=== PATIENT | male | born 1970 | race Caucasian/White ===

== ENCOUNTER 2017-11-10 00:24 | Emergency (ER) | payer BC, OTHER ==
[2017-11-10 01:04] LABS: Basophils % (A) 1 %; Eosinophils # (A) 0.1 k/uL (0-0.7); Eosinophils % (A) 2 %; HCT 44.3 % (39.0-53.0); HGB 15.2 gm/dL (13.0-17.5); Lymphocytes # (A) 1.5 k/uL (1.0-4.8); Lymphocytes % (A) 24 %; MCH 28.4 pg (25.0-35.0); MCHC 34.4 g/dL (31.0-37.0); MCV 82.6 fL (80.0-100.0); Mean Platelet Volume 8.2; Monocytes # (A) 0.6 k/uL (0-1.0); Monocytes % (A) 9 %; Neutrophils # (A) 3.9 k/uL (1.3-7.7); Neutrophils % (A) 61 %; Platelet Count 148 k/uL (150-450); RBC 5.36 m/uL (4.30-5.90); RDW 13.5 % (11.5-15.5); WBC 6.3 k/uL (3.8-10.6)
[2017-11-10 01:23] LABS: Partial Thromboplastin Time 21.7 sec (22.0-30.0)
--- NOTE | 2017-11-10 01:23 | XR ---
EXAMINATION TYPE: XR chest 2V DATE OF EXAM: 11/10/2017 COMPARISON: NONE HISTORY: Chest pain TECHNIQUE: Frontal and lateral views of the chest are obtained. FINDINGS: Heart and mediastinum are normal. Lungs are clear. Diaphragm is normal. There are chest le ads. Bony thorax appears intact. IMPRESSION: Normal chest.
[2017-11-10 01:25] LABS: ALT 85 U/L (21-72); AST 40 U/L (17-59); Albumin 4.1 g/dL (3.5-5.0); Alkaline Phosphatase 69 U/L (38-126); Anion Gap 10 mmol/L; Blood Urea Nitrogen 20 mg/dL (9-20); Calcium 8.7 mg/dL (8.4-10.2); Carbon Dioxide 26 mmol/L (22-30); Chloride 101 mmol/L (98-107); Glucose 173 mg/dL (74-99); Magnesium 1.8 mg/dL (1.6-2.3); Potassium 3.9 mmol/L (3.5-5.1); Sodium 137 mmol/L (137-145); Total Bilirubin 0.5 mg/dL (0.2-1.3); Total Protein 6.5 g/dL (6.3-8.2)
[2017-11-10 01:34] LABS: Creatine Kinase 137 U/L (55-170)
[2017-11-10 01:46] LABS: Creatine Kinase MB 0.8 ng/mL (0.0-2.4); Troponin I <0.012 ng/mL (0.000-0.034)
--- NOTE | 2017-11-10 02:03 | ED ---
General Adult HPI - General Chief complaint: Chest Pain Stated complaint: chest pain Time Seen by Provider: 11/10/17 00:36 Source: patient, RN notes reviewed, old records reviewed Mode of arrival: wheelchair Limitations: no limitations - History of Present Illness Initial comments: 47-year-old male presents for evaluation of chest pain. Pain is been ongoing for the past several days. He's had this pain both at rest with exertion. Patient does not report any pain at the time of my evaluation. Patient states he did have some diaphoresis and nausea. No significant vomiting. Patient has no known history of coronary artery disease. No family history of coronary artery disease. He is a current smoker. No history of hypertension or diabetes. Pain is dull left-sided with some radiation to the left arm. - Related Data Allergies Allergy/AdvReac Type Severity Reaction Status Date / Time No Known Allergies Allergy Verified 11/10/17 00:27 Review of Systems ROS Statement: Those systems with pertinent positive or pertinent negative responses have been documented in the HPI. ROS Other: All systems not noted in ROS Statement are negative. Past Medical History Past Medical History: Sleep Apnea/CPAP/BIPAP History of Any Multi-Drug Resistant Organisms: None Reported Past Surgical History: No Surgical Hx Reported Past Psychological History: No Psychological Hx Reported Smoking Status: Current every day smoker Past Alcohol Use History: Occasional Past Drug Use History: None Reported General Exam Limitations: no limitations Course Vital Signs 11/10/17 11/10/17 11/10/17 00:27 00:38 01:41 Temperature 98.3 F Pulse Rate 98 92 Pulse Rate [ 96 Bilateral Sitting Radial] Respiratory 18 18 Rate Blood Pressure 137/85 122/64 O2 Sat by Pulse 100 100 Oximetry - Reevaluation(s) Reevaluation #1: 11/10/17 02:00 Patient does develop some chest pain while the emergency department and EKG is repeated, EKG is nonischemic. EKG Findings - EKG Comments: EKG Findings:: EKG: Normal sinus rhythm with sinus arrhythmia, rate of 86, ND interval 118, QRS duration 90, QTC 428, EKG repeated at 1:48, with pain. This is normal sinus rhythm, no acute ST segment changes or T-wave inversions. Ventricular rate of 90, ND interval 120, QRS duration 86, QTC 442 Medical Decision Making - Medical Decision Making 47-year-old male presenting for evaluation chest pain. EKG is negative for definitive signs of ischemia. History is mildly concerning. Chest x-ray negative for focal airspace disease or acute findings. CBC, CMP and troponin are negative. EKG is repeated when patient has some mild pain. This is unchanged from baseline. Patient is offered observation for serial cardiac enzymes and cardiology consultation, he declines. He prefers outpatient follow- up. Diagnosis: Chest pain. - Lab Data Result diagrams: 11/10/17 00:52 11/10/17 00:52 Lab Results 11/10/17 11/10/17 11/10/17 Range/Units 00:52 00:52 00:52 WBC 6.3 (3.8-10.6) k/uL RBC 5.36 (4.30-5.90) m/uL Hgb 15.2 (13.0-17.5) gm/dL Hct 44.3 (39.0-53.0) % MCV 82.6 (80.0-100.0) fL MCH 28.4 (25.0-35.0) pg MCHC 34.4 (31.0-37.0) g/dL RDW 13.5 (11.5-15.5) % Plt Count 148 L (150-450) k/uL Neutrophils % 61 % Lymphocytes % 24 % Monocytes % 9 % Eosinophils % 2 % Basophils % 1 % Neutrophils # 3.9 (1.3-7.7) k/uL Lymphocytes # 1.5 (1.0-4.8) k/uL Monocytes # 0.6 (0-1.0) k/uL Eosinophils # 0.1 (0-0.7) k/uL Basophils # 0.0 (0-0.2) k/uL PT (9.0-12.0) sec INR (<1.2) APTT (22.0-30.0) sec Sodium 137 (137-145) mmol/L Potassium 3.9 (3.5-5.1) mmol/L Chloride 101 (98-107) mmol/L Carbon Dioxide 26 (22-30) mmol/L Anion Gap 10 mmol/L BUN 20 (9-20) mg/dL Creatinine 1.10 (0.66-1.25) mg/dL Est GFR (CKD-EPI)AfAm >90 (>60 ml/min/1.73 sqM) Est GFR (CKD-EPI)NonAf 79 (>60 ml/min/1.73 sqM) Glucose 173 H (74-99) mg/dL Calcium 8.7 (8.4-10.2) mg/dL Magnesium 1.8 (1.6-2.3) mg/dL Total Bilirubin 0.5 (0.2-1.3) mg/dL AST 40 (17-59) U/L ALT 85 H (21-72) U/L Alkaline Phosphatase 69 (38-126) U/L Total Creatine Kinase 137 (55-170) U/L CK-MB (CK-2) 0.8 (0.0-2.4) ng/mL CK-MB (CK-2) Rel Index 0.6 Troponin I <0.012 (0.000-0.034) ng/mL NT-Pro-B Natriuret Pep pg/mL Total Protein 6.5 (6.3-8.2) g/dL Albumin 4.1 (3.5-5.0) g/dL 11/10/17 11/10/17 Range/Units 00:52 00:52 WBC (3.8-10.6) k/uL RBC (4.30-5.90) m/uL Hgb (13.0-17.5) gm/dL Hct (39.0-53.0) % MCV (80.0-100.0) fL MCH (25.0-35.0) pg MCHC (31.0-37.0) g/dL RDW (11.5-15.5) % Plt Count (150-450) k/uL Neutrophils % % Lymphocytes % % Monocytes % % Eosinophils % % Basophils % % Neutrophils # (1.3-7.7) k/uL Lymphocytes # (1.0-4.8) k/uL Monocytes # (0-1.0) k/uL Eosinophils # (0-0.7) k/uL Basophils # (0-0.2) k/uL PT 10.0 (9.0-12.0) sec INR 1.0 (<1.2) APTT 21.7 L (22.0-30.0) sec Sodium (137-145) mmol/L Potassium (3.5-5.1) mmol/L Chloride (98-107) mmol/L Carbon Dioxide (22-30) mmol/L Anion Gap mmol/L BUN (9-20) mg/dL Creatinine (0.66-1.25) mg/dL Est GFR (CKD-EPI)AfAm (>60 ml/min/1.73 sqM) Est GFR (CKD-EPI)NonAf (>60 ml/min/1.73 sqM) Glucose (74-99) mg/dL Calcium (8.4-10.2) mg/dL Magnesium (1.6-2.3) mg/dL Total Bilirubin (0.2-1.3) mg/dL AST (17-59) U/L ALT (21-72) U/L Alkaline Phosphatase (38-126) U/L Total Creatine Kinase (55-170) U/L CK-MB (CK-2) (0.0-2.4) ng/mL CK-MB (CK-2) Rel Index Troponin I (0.000-0.034) ng/mL NT-Pro-B Natriuret Pep <11 pg/mL Total Protein (6.3-8.2) g/dL Albumin (3.5-5.0) g/dL Disposition Clinical Impression: Chest pain Disposition: HOME SELF-CARE Condition: Good Instructions: Chest Pain (ED) Is patient prescribed a controlled substance at d/c from ED?: No Referrals: Milan Patel DO [Primary Care Provider] - 1-2 days Tc Marques MD [STAFF PHYSICIAN] - 1-2 days Time of Disposition: 02:02
[2017-11-10 02:28] VITALS: BP 106/53; PULSE 83; RESP 17; TEMP 97.9
== END 2017-11-10 02:29 | disposition home or self-care (01) ==
LOC: EC 00:24
DX: R07.9 Chest pain, unspecified (principal); R11.0 Nausea; R61 Generalized hyperhidrosis; F17.200 Nicotine dependence, unspecified, uncomplicated; G47.30 Sleep apnea, unspecified; Z99.89 Dependence on other enabling machines and devices
CPT/HCPCS: 36415; 71046; 80053; 82550; 82553; 83735; 83880; 84484; 85025; 85610; 85730; 93005; 99285

== ENCOUNTER → 2017-12-09 | Outpatient (CLI) | payer BC ==
--- NOTE | 2017-12-09 12:36 | EST ---
EXERCISE STRESS DATE OF SERVICE: 12/09/2017 AGE: 47 SEX: Male HT: 5'6" WT: 240 PROTOCOL: EXERCISE TREADMILL STRESS TEST STAGE: III DURATION OF EXERCISE: 8 minutes 15 seconds HEART RATE REST: 105 BLOOD PRESSURE REST: 160/87 MAXIMUM HEART RATE ACHIEVED: 149 MAXIMUM BLOOD PRESSURE: 202/80 85% MPHR: 145 100% MPHR: 171 METS: 9.5 INDICATIONS: Chest pain. CLINICAL INFORMATION: STRESS DATA: Pretesting physical examination showed a heart rate of 105. Pressure is 160/87 mmHg. Baseline EKG showed sinus rhythm. The patient exercised on the treadmill according to Hiram proton for a total of 8 minutes and 15 seconds and achieved 9.5 METs. Max heart rate was 149 which is about 87% of maximum predicted heart rate. Maximum blood pressure was 202/80 mmHg. Clinically the patient did not have any symptoms of chest pain or chest discomfort during the testing or in recovery. The EKG did not show any significant ST or T-wave abnormalities concerning for ischemia. CONCLUSION: 1. Excellent exercise tolerance. 2. No ischemic ST or T-wave abnormalities in response to exercise. MMODL / IJN: [id number] /
--- NOTE | 2017-12-09 12:50 | ECHOF ---
Referral Reason:R07.89 Atypical Chest Pain MEASUREMENTS -------- HEIGHT: 170.2 cm WEIGHT: 108.9 kg BP: RVIDd: 2.2 cm (< 3.3) IVSd: 1.3 cm (0.6 - 1.1) LVIDd: 4.4 cm (3.9 - 5.3) LVPWd: 1.3 cm (0.6 - 1.1) IVSs: 1.4 cm LVIDs: 3.5 cm LVPWs: 1.2 cm LA Diam: 2.6 cm (2.7 - 3.8) Ao Diam: 3.2 cm (2.0 - 3.7) AV Cusp: 1.1 cm (1.5 - 2.6) LA Diam: 2.9 cm (2.7 - 3.8) EPSS: 0.2 cm MV E Sesar: 0.53 m/s MV DecT: 98 ms MV A Sesar: 0.52 m/s MV E/A Ratio: 1.02 AV maxP.18 mmHg AV meanP.63 mmHg RAP: 5.00 mmHg RVSP: 14.31 mmHg MV EF SLOPE: 86.45 mm/s (70 - 150) MV EXCURSION: 1.03 cm (> 18.000) FINDINGS -------- Sinus rhythm. This was a technically adequate study. Morbid Obesity The left ventricular size is normal. There is mild concentric left ventricular hypertrophy. Overa ll left ventricular systolic function is low-normal with, an EF between 50 - 55 %. The right ventricle is normal in size. The left atrial size is normal. The right atrial size is normal. There is moderate aortic valve sclerosis. Peak/mean gradient across the Aortic Valve is 14.18mmHg / 8.63mmHg. Mild mitral annular calcification present. No mitral regurgitation. Mild tricuspid regurgitation present. There is no evidence of pulmonary hypertension. The right v entricular systolic pressure, as measured by Doppler, is 14.31mmHg. The aortic root size is normal. There is no pericardial effusion. CONCLUSIONS -------- 1. Sinus rhythm. 2. This was a technically adequate study. 3. Morbid Obesity 4. The left ventricular size is normal. 5. There is mild concentric left ventricular hypertrophy. 6. Overall left ventricular systolic function is low-normal with, an EF between 50 - 55 %. 7. The right ventricle is normal in size. 8. The left atrial size is normal. 9. The right atrial size is normal. 10. There is moderate aortic valve sclerosis. 11. Peak/mean gradient across the Aortic Valve is 14.18mmHg / 8.63mmHg. 12. Mild mitral annular calcification present. 13. No mitral regurgitation. 14. Mild tricuspid regurgitation present. 15. There is no evidence of pulmonary hypertension. 16. The right ventricular systolic pressure, as measured by Doppler, is 14.31mmHg. 17. The aortic root size is normal. 18. There is no pericardial effusion. MILITARY LOGISTICS SPECIALIST: Iwona Barrera RDCS
== END ==
LOC: RADNMMAIN 09:11
PROVIDERS: ATTEND Family Medicine
DX: I08.2 Rheumatic disorders of both aortic and tricuspid valves (principal)
CPT/HCPCS: 93017; 93306

== ENCOUNTER → 2019-02-22 | Outpatient (CLI) | payer BC ==
--- NOTE | 2019-02-22 11:34 | XR ---
EXAMINATION TYPE: XR chest 2V DATE OF EXAM: 02/22/2019 COMPARISON: Prior chest x-ray 11/10/2017 HISTORY: Nicotine dependence TECHNIQUE: Frontal and lateral views of the chest are obtained. FINDINGS: There is no focal air space opacity, pleural effusion, or pneumothorax seen. The cardiac silhouette size is within normal limits. The osseous structures are intact. IMPRESSION: No acute cardiopulmonary process.
--- NOTE | 2019-02-22 12:27 | XR ---
Left wrist HISTORY: Pain 4 views of the left wrist Bone mineralization, joint spaces and alignment are maintained. No fracture or dislocation. IMPRESSION: No significant abnormality
== END | disposition home or self-care (01) ==
LOC: RADXRMAIN 10:46
PROVIDERS: ATTEND Family Medicine
DX: M79.645 Pain in left finger(s) (principal); F17.210 Nicotine dependence, cigarettes, uncomplicated; Z00.00 Encounter for general adult medical examination without abnormal findings
CPT/HCPCS: 71046

== ENCOUNTER 2023-07-02 23:12 | Observation (INO) | payer BC ==
--- NOTE | 2023-07-02 23:32 | ED ---
Chest Pain HPI - General Source: patient, family Mode of arrival: ambulatory Limitations: no limitations <Aidan Szymanski - Last Filed: 07/02/23 23:31> - General Source: patient, family, RN notes reviewed, old records reviewed <Mehrdad Oliveros - Last Filed: 07/03/23 01:47> - General Chief Complaint: Chest Pain Stated Complaint: Tightness in chest, neck and arm pain Time Seen by Provider: 07/02/23 23:31 - History of Present Illness Initial Comments: 52-year-old male present with chief complaint of chest pain with radiation to the left shoulder and jaw on and off for 2 weeks (Aidan Szymanski) Patient is a 52-year-old male who presents emergency department for chest pain. Originally seen as a quick note. I evaluated patient when he was placed in room 6. Workup started in triage. Endorses 2 weeks of intermittent chest discomfort. Describes it as a pressure sensation located midsternal and left- sided chest with radiation to the left arm. Denies any known palliative or provocative factors. Is any cardiac history. Does have a history of diabetes. Also has a history of sleep apnea. Currently has no chest pain just the arm discomfort. States is not severe at all. Presents today for further evaluation over concern of continuing of the pain. Denies any diaphoresis or nausea or vomiting with this pain. Does not know if he has a family medical history of heart conditions. Was a prior tobacco user. Presents for further evaluation. (Mehrdad Oliveros) - Related Data Allergies Allergy/AdvReac Type Severity Reaction Status Date / Time No Known Allergies Allergy Verified 07/02/23 23:24 Review of Systems ROS Other: All systems not noted in ROS Statement are negative. <Aidan Szymanski - Last Filed: 07/02/23 23:31> ROS Other: All systems not noted in ROS Statement are negative. <Mehrdad Oliveros - Last Filed: 07/03/23 01:47> ROS Statement: Those systems with pertinent positive or pertinent negative responses have been documented in the HPI. Review of Systems: CONST: Denies fever EYES: Denies blurry vision ENT: Denies nasal congestion C/V: Denies Chest pain RESP: Denies shortness of breath GI: Denies abdominal pain : Denies dysuria SKIN: Denies rash. MSK: Denies joint pain. NEURO: Denies headache (Mehrdad Oliveros) EKG Findings - EKG Comments: EKG Findings:: 12-lead Electrocardiogram Interpretation Note. EKG was reviewed and interpreted by myself. 12-lead ECG performed at 2327 is interpreted by me as revealing normal sinus rhythm at a rate of 78 beats per minute. Bruce is normal. MA interval is 134 ms, QRS duration is 89 ms, QTc is 386 ms.. There were no ST or T wave abnormalities to suggest myocardial ischemia or injury. R wave progression across the precordium was satisfactory. By my interpretation this EKG is non-diagnostic for acute ischemia. - EKG Results: EKG: interpreted by ERMD <Mehrdad Oliveros - Last Filed: 07/03/23 01:47> Past Medical History Past Medical History: Diabetes Mellitus, Sleep Apnea/CPAP/BIPAP History of Any Multi-Drug Resistant Organisms: None Reported Past Surgical History: No Surgical Hx Reported Past Psychological History: No Psychological Hx Reported Smoking Status: Former smoker Past Alcohol Use History: Occasional Past Drug Use History: None Reported <Aidan Szymanski - Last Filed: 07/02/23 23:31> General Exam Limitations: no limitations <Aidan Szymanski - Last Filed: 07/02/23 23:31> <Mehrdad Oliveros - Last Filed: 07/03/23 01:47> - General Exam Comments Initial Comments: Visual Physical Exam Vital signs reviewed General: Well-appearing, nontoxic, no acute distress. Head: Normocephalic, atraumatic Eyes: PERRLA, EOMI ENT: Airway patent Chest: Nonlabored breathing Skin: No visual rash, normal skin tone Neuro: Alert and oriented 3 Musculoskeletal: No gross abnormalities (Aidan Szymanski) General: Appears in no acute distress. HEAD: Normal with no signs of head trauma. EYES: PERRLA, EOMI, conjunctiva normal, no discharge. ENT: Hearing grossly intact, normal oropharynx. RESPIRATORY: Clear breath sounds bilaterally. No wheezes, rales, or rhonchi. C/V: Regular rate and rhythm. S1 and S2 auscultated, no edema, peripheral pulses 2+ and intact throughout. Chest pain not reproducible on palpation. ABD: Abd is soft, nontender, nondistended EXT: Normal range of motion, no obvious deformity SKIN: No rashes or lesions observed on exposed skin. NEURO: Alert and oriented x 4. (Mehrdad Oliveros) Course Vital Signs 07/02/23 07/03/23 23:22 00:28 Temperature 98.5 F Pulse Rate 78 85 Respiratory 18 16 Rate Blood Pressure 138/84 127/73 O2 Sat by Pulse 100 98 Oximetry Chest Pain MDM <Aidan Szymanski - Last Filed: 07/02/23 23:31> <Mehrdad Oliveros - Last Filed: 07/03/23 01:47> - MDM I performed the quick note portion of this visit, electronically signed Aidan Szymanski PA-C (Aidan Szymanski) Was pt. sent in by a medical professional or institution (, PA, [facility], urgent care, hospital, or group home...) When possible be specific @ -No Did you speak to anyone other than the patient for history (EMS, parent, family, police, friend...)? What history was obtained from this source @ -No Did you review nursing and triage notes (agree or disagree)? Why? @ -I reviewed and agree with nursing and triage notes Were old charts reviewed (outside hosp., previous admission, EMS record, old EKG, old radiological studies, urgent care reports/EKG's, group home records)? Report findings @ -Old charts reviewed Differential Diagnosis (chest pain, altered mental status, abdominal pain women, abdominal pain men, vaginal bleeding, weakness, fever, dyspnea, syncope, headache, dizziness, GI bleed, back pain, seizure, CVA, palpatations, mental health, musculoskeletal)? @ -Differential Chest Pain: Stable Angina, Unstable Angina, STEMI, NSTEMI Aortic Dissection, Pneumothorax, Musculoskeletal, Esophageal Spasm GERD, Cholecystitis, Pancreatitis, Zoster, this is not meant to be an all-inclusive list. EKG interpreted by me (3pts min.). @ -As above X-rays interpreted by me (1pt min.). @ -Chest x-ray reveals no obvious acute cardiopulmonary process. CT interpreted by me (1pt min.). @ -None done U/S interpreted by me (1pt. min.). @ -None done What testing was considered but not performed or refused? (CT, X-rays, U/S, labs)? Why? @ -None What meds were considered but not given or refused? Why? @ -None Did you discuss the management of the patient with other professionals (professionals i.e. DrKannan, PA, [facility] [facility], lab, RT, psych nurse, social science research assistant, geek squad agent, teacher, ict customer support officer, correctional case records supervisor)? Give summary @ -Discussed with [facility] Dr. Khan who accepted the admission. Was smoking cessation discussed for >3mins.? @ -No Was critical care preformed (if so, how long)? @ -No Were there social determinants of health that impacted care today? How? (Homelessness, low income, unemployed, alcoholism, drug addiction, transportation, low edu. Level, literacy, decrease access to med. care, longterm, rehab)? @ -No Was there de-escalation of care discussed even if they declined (Discuss DNR or withdrawal of care, Hospice)? DNR status @ -No What co-morbidities impacted this encounter? (DM, HTN, Smoking, COPD, CAD, Cancer, CVA, ARF, Chemo, Hep., AIDS, mental health diagnosis, sleep apnea, morbid obesity)? @ -None Was patient admitted / discharged? Hospital course, mention meds given and route, prescriptions, significant lab abnormalities, going to OR and other pertinent info. @ -Patient presents with 2 weeks of intermittent chest pain with radiation of the left shoulder. Cardiopulmonary workup initiated. Patient in agreement this plan. He will be given 324 mg of aspirin. Vital signs are within acceptable limits. Currently has no chest pain but has some left arm discomfort and we will attempt a nitro to see if it has any effect. He was in agreement this plan. I tried no effect on his left arm discomfort. Still has no chest pain. Laboratory studies are remarkable for slight glycemia of 218. Troponin is undetectable. Remainder the labs unremarkable. EKG shows no signs of acute ischemia. Chest x-ray unremarkable. I discussed the results with the patient. Patient's heart score is borderline m oderate at 3-4. I did offer observation admission for cardiology evaluation and he was in agreement this plan. I spoke with the on-call physician for [facility] Dr. Khan who accepted the admission. Cardiology consulted. Echo ordered. Undiagnosed new problem with uncertain prognosis? @ -No Drug Therapy requiring intensive monitoring for toxicity (Heparin, Nitro, Insulin, Cardizem)? @ -No Were any procedures done? @ -No Diagnosis/symptom? @ -Chest pain Acute, or Chronic, or Acute on Chronic? @ -Acute Uncomplicated (without systemic symptoms) or Complicated (systemic symptoms)? @ -Complicated Side effects of treatment? @ -No Exacerbation, Progression, or Severe Exacerbation? @ -No Poses a threat to life or bodily function? How? (Chest pain, USA, DC, pneumonia, PE, COPD, DKA, ARF, appy, cholecystitis, CVA, Diverticulitis, Homicidal, Suicidal, threat to staff... and all critical care pts) @ -Yes (Mehrdad Oliveros) Disposition <Aidan Szymanski - Last Filed: 07/02/23 23:31> Time of Disposition: 01:10 <Mehrdad Oliveros - Last Filed: 07/03/23 01:47> Clinical Impression: Chest pain Disposition: ADMITTED IP TO THIS HOSP Condition: Stable
[2023-07-03 00:26] LABS: Basophils # (A) 0.1 k/uL (0-0.2); Basophils % (A) 1 %; Eosinophils # (A) 0.1 k/uL (0-0.7); Eosinophils % (A) 2 %; HCT 44.7 % (39.0-53.0); HGB 15.6 gm/dL (13.0-17.5); Lymphocytes % (A) 34 %; MCH 29.6 pg (25.0-35.0); MCHC 34.9 g/dL (31.0-37.0); MCV 84.8 fL (80.0-100.0); Mean Platelet Volume 9.3; Monocytes # (A) 0.5 k/uL (0-1.0); Monocytes % (A) 9 %; Neutrophils # (A) 3.1 k/uL (1.3-7.7); Neutrophils % (A) 51 %; Platelet Count 128 k/uL (150-450); RBC 5.27 m/uL (4.30-5.90); WBC 5.9 k/uL (3.8-10.6)
--- NOTE | 2023-07-03 00:26 | XR ---
EXAM: XR Chest, 2 Views CLINICAL HISTORY: ITS.REASON XR Reason: Chest Pain TECHNIQUE: Frontal and lateral views of the chest. COMPARISON: 02/22/2019 FINDINGS: Lungs: Unremarkable. No consolidation. Pleural space: Unremarkable. No pneumothorax. No pleural effusions. Heart: Unremarkable. No cardiomegaly. Mediastinum: Unremarkable. Normal mediastinal contour. Bones/joints: No acute osseous abnormalities. IMPRESSION: Normal chest.
[2023-07-03 00:35] LABS: ALT 47 U/L (4-49); AST 27 U/L (17-59); African American GFR (CKD) 76 (>60 ml/min/1.73 sqM); Albumin 4.1 g/dL (3.5-5.0); Alkaline Phosphatase 75 U/L (38-126); Anion Gap 5 mmol/L; Blood Urea Nitrogen 23 mg/dL (9-20); Calcium 8.9 mg/dL (8.4-10.2); Carbon Dioxide 27 mmol/L (22-30); Chloride 105 mmol/L (98-107); Glucose 218 mg/dL (74-99); Lipase 98 U/L (23-300); Magnesium 1.7 mg/dL (1.6-2.3); Non-African American GFR(CKD) 65 (>60 ml/min/1.73 sqM); Partial Thromboplastin Time 22.2 sec (22.0-30.0); Potassium 4.1 mmol/L (3.5-5.1); Prothrombin Time 10.5 sec (10.0-12.5); Sodium 137 mmol/L (137-145); Total Bilirubin 0.5 mg/dL (0.2-1.3); Total Protein 6.7 g/dL (6.3-8.2)
[2023-07-03] MEDS: NITROGLYCERIN SL TABS 0.4 MG TAB SUBLINGUAL PRN (00:58)
[2023-07-03] MEDS: ASPIRIN 81 MG PO STA (00:58)
[2023-07-03] MEDS ORDERED: ONDANSETRON 4 MG/2 ML VIAL IVP PRN (01:14)
[2023-07-03] MEDS ORDERED: ACETAMINOPHEN TAB 325 MG TAB PO PRN (01:14)
[2023-07-03] MEDS ORDERED: NALOXONE 0.4 MG/ML 1 ML VIAL IV PRN (01:14)
[2023-07-03] MEDS: HEPARIN SODIUM,PORCINE 5,000 UNIT/ML 1 ML VIAL SQ SCH (08:08)
--- NOTE | 2023-07-03 13:13 | P.CRDCN ---
History of Present Illness Consult date: 07/03/23 Chief complaint: Chest pain History of present illness: The patient is a very pleasant 52-year-old gentleman with a past medical history significant for diabetes and aortic stenosis based on echo was performed in 2018 as well as overweight and sleep apnea. The patient presented to the hospital complaining of chest discomfort. Discomfort is on the left side of the chest as a dull kind of discomfort with no radiation to the arms or neck or shoulders or back and no associated symptoms and appears to be exertional and nonexertional. Did not get worse in terms of frequency or intensity compared to before. Further investigation performed including an EKG given to be unremarkable and troponin came in to be unremarkable as well. The chest x-ray did not show any acute abnormalities. The rest of the blood work came in to be unremarkable. The patient underwent an echo in 2018 and that revealed normal LV systolic function with moderate aortic sclerosis and mild aortic stenosis. He underwent a stress test also in 2018 came in to be unremarkable. On physical examination today he does have definitely significant crescendo-decrescendo murmur at the right upper sternal border with decrease in the intensity of S2 concerning for progression in the severity of aortic stenosis and possibly bicuspid aortic valve giving his age. Before we pursue any further cardiac testing including a stress test and going to obtain an echo to assess the severity of aortic stenosis. Otherwise the rest of the examination overall is unremarkable. Assessment Intermittent episodes of chest discomfort Diabetes Aortic stenosis Overweight Sleep apnea Plan Acute coronary syndrome was ruled out Rule out progression in the severity of aortic stenosis by obtaining an echocardiogram Further recommendation to follow Past Medical History Past Medical History: Diabetes Mellitus, Sleep Apnea/CPAP/BIPAP History of Any Multi-Drug Resistant Organisms: None Reported Past Surgical History: No Surgical Hx Reported Past Psychological History: No Psychological Hx Reported Smoking Status: Former smoker Past Alcohol Use History: Occasional Past Drug Use History: None Reported Medications and Allergies Home Medications Medication Instructions Recorded Confirmed Type Aspirin EC [Ecotrin] 325 mg PO DAILY 07/03/23 07/03/23 History metFORMIN HCL 1,000 mg PO DIRECTED PRN 07/03/23 07/03/23 History Allergies Allergy/AdvReac Type Severity Reaction Status Date / Time No Known Allergies Allergy Verified 07/03/23 11:22 Physical Exam Vitals: Vital Signs Temp Pulse Resp BP Pulse Ox 07/03/23 12:35 77 20 117/94 95 07/03/23 08:06 98.8 F 85 20 110/77 97 07/03/23 04:50 80 16 107/70 98 07/03/23 00:28 85 16 127/73 98 07/02/23 23:22 98.5 F 78 18 138/84 100 Intake and Output 07/02/23 07/03/23 07/03/23 22:59 06:59 14:59 Other: Weight 104.326 kg Results 07/03/23 00:11 07/03/23 00:11 Cardiac Enzymes 07/03/23 07/03/23 07/03/23 Range/Units 00:11 00:11 04:11 AST 27 (17-59) U/L Troponin I <0.012 <0.012 (0.000-0.034) ng/mL 07/03/23 Range/Units 07:53 AST (17-59) U/L Troponin I <0.012 (0.000-0.034) ng/mL Coagulation 07/03/23 Range/Units 00:11 PT 10.5 (10.0-12.5) sec APTT 22.2 (22.0-30.0) sec CBC 07/03/23 Range/Units 00:11 WBC 5.9 (3.8-10.6) k/uL RBC 5.27 (4.30-5.90) m/uL Hgb 15.6 (13.0-17.5) gm/dL Hct 44.7 (39.0-53.0) % Plt Count 128 L (150-450) k/uL Comprehensive Metabolic Panel 07/03/23 Range/Units 00:11 Sodium 137 (137-145) mmol/L Potassium 4.1 (3.5-5.1) mmol/L Chloride 105 (98-107) mmol/L Carbon Dioxide 27 (22-30) mmol/L BUN 23 H (9-20) mg/dL Creatinine 1.25 (0.66-1.25) mg/dL Glucose 218 H (74-99) mg/dL Calcium 8.9 (8.4-10.2) mg/dL AST 27 (17-59) U/L ALT 47 (4-49) U/L Alkaline Phosphatase 75 (38-126) U/L Total Protein 6.7 (6.3-8.2) g/dL Albumin 4.1 (3.5-5.0) g/dL Current Medications Generic Name Dose Route Start Last Admin Trade Name Freq PRN Reason Stop Dose Admin Acetaminophen 650 mg 07/03/23 01:14 Acetaminophen Tab 325 Mg Tab PO Q6HR PRN Mild Pain or Fever > 100.5 Heparin Sodium (Porcine) 5,000 unit 07/03/23 08:00 07/03/23 08:08 Heparin Sodium,Porcine 5,000 Unit/Ml 1 Ml Vial SQ 5,000 unit Q8HR BANDAR Administration Insulin Aspart 0 unit 07/03/23 17:30 Insulin Aspart (Novolog) 100 Unit/Ml Vial SQ 07/10/23 17:31 ACHS [facility] Protocol Naloxone HCl 0.2 mg 07/03/23 01:14 Naloxone 0.4 Mg/Ml 1 Ml Vial IV Q2M PRN Opioid Reversal Nitroglycerin 0.4 mg 07/03/23 00:43 07/03/23 00:58 Nitroglycerin Sl Tabs 0.4 Mg Tab SUBLINGUAL 0.4 mg Q5M PRN Administration Chest Pain Ondansetron HCl 4 mg 07/03/23 01:14 Ondansetron 4 Mg/2 Ml Vial IVP Q8HR PRN Nausea And Vomiting Intake and Output 07/02/23 07/03/23 07/03/23 22:59 06:59 14:59 Other: Weight 104.326 kg 07/03/23 00:11 07/03/23 00:11
--- NOTE | 2023-07-03 17:41 | P.HPIM ---
History of Present Illness H&P Date: 07/03/23 Chief Complaint: Chest pain 52-year-old male who presents emergency department for chest pain. Originally seen as a quick note. I evaluated patient when he was placed in room 6. Workup started in triage. Endorses 2 weeks of intermittent chest discomfort. Describes it as a pressure sensation located midsternal and left-sided chest with radiation to the left arm. Denies any known palliative or provocative factors. Is any cardiac history. Does have a history of diabetes. Also has a history of sleep apnea. Currently has no chest pain just the arm discomfort. States is not severe at all. Presents today for further evaluation over concern of continuing of the pain. Denies any diaphoresis or nausea or vomiting with this pain. Does not know if he has a family medical history of heart conditions. Was a prior tobacco user. Blood work completed in ED reveals a WBC of 5.9, hemoglobin of 15.6 and platelet count of 128, sodium 137, potassium 4.1, BUNs/creatinine of 23/1.25 and blood glucose of 218, troponin is less than 0.012 EKG does not show any acute changes Chest x-ray is unremarkable Patient has undergone stress testing in 2018 which was negative reportedly Review of Systems CONSTITUTIONAL: No fever, no malaise, no fatigue. HEENT: No recent visual problems or hearing problems. Denied any sore throat. CARDIOVASCULAR: No chest pain, orthopnea, PND, no palpitations, no syncope. PULMONARY: No shortness of breath, no cough, no hemoptysis. GASTROINTESTINAL: No diarrhea, no nausea, no vomiting, no abdominal pain. NEUROLOGICAL: No headaches, no weakness, no numbness. HEMATOLOGICAL: Denies any bleeding or petechiae. GENITOURINARY: Denies any burning micturition, frequency, or urgency. MUSCULOSKELETAL/RHEUMATOLOGICAL: Denies any joint pain, swelling, or any muscle pain. ENDOCRINE: Denies any polyuria or polydipsia. The rest of the 14-point review of systems is negative. Past Medical History Past Medical History: Diabetes Mellitus, Sleep Apnea/CPAP/BIPAP History of Any Multi-Drug Resistant Organisms: None Reported Past Surgical History: No Surgical Hx Reported Past Psychological History: No Psychological Hx Reported Smoking Status: Former smoker Past Alcohol Use History: Occasional Past Drug Use History: None Reported Medications and Allergies Home Medications Medication Instructions Recorded Confirmed Type Aspirin EC [Ecotrin] 325 mg PO DAILY 07/03/23 07/03/23 History metFORMIN HCL 1,000 mg PO DIRECTED PRN 07/03/23 07/03/23 History Allergies Allergy/AdvReac Type Severity Reaction Status Date / Time No Known Allergies Allergy Verified 07/03/23 11:22 Physical Exam Vitals: Vital Signs Temp Pulse Resp BP Pulse Ox 07/03/23 12:35 77 20 117/94 95 07/03/23 08:06 98.8 F 85 20 110/77 97 07/03/23 04:50 80 16 107/70 98 07/03/23 00:28 85 16 127/73 98 07/02/23 23:22 98.5 F 78 18 138/84 100 Intake and Output 07/02/23 07/03/23 07/03/23 22:59 06:59 14:59 Other: Weight 104.326 kg General: Appears in no acute distress. HEAD: Normal with no signs of head trauma. EYES: PERRLA, EOMI, conjunctiva normal, no discharge. ENT: Hearing grossly intact, normal oropharynx. RESPIRATORY: Clear breath sounds bilaterally. No wheezes, rales, or rhonchi. C/V: Regular rate and rhythm. S1 and S2 auscultated, no edema, peripheral pulses 2+ and intact throughout. Chest pain not reproducible on palpation. ABD: Abd is soft, nontender, nondistended EXT: Normal range of motion, no obvious deformity SKIN: No rashes or lesions observed on exposed skin. NEURO: Alert and oriented x 4. Results CBC & Chem 7: 07/03/23 00:11 07/03/23 00:11 Labs: Abnormal Lab Results - Last 24 Hours (Table) 07/03/23 07/03/23 Range/Units 00:11 00:11 Plt Count 128 L (150-450) k/uL BUN 23 H (9-20) mg/dL Glucose 218 H (74-99) mg/dL Assessment and Plan Assessment: 1. Chest pain rule out acute coronary syndrome --We will admit patient to telemetry; monitor EKG and trend troponin -- Consult cardiology; patient recommendations 2. Hyperglycemia without acidosis/history of diabetes mellitus type 2 -- Patient takes metformin which is placed on hold -- Monitor Accu-Cheks before every meal and at bedtime with insulin sliding scale 3. History of aortic stenosis; patient had echocardiogram completed in 2018 which revealed normal LV systolic function and moderate aortic sclerosis and mild aortic stenosis -- Possible progression of aortic stenosis; echocardiogram is ordered Cardiology on board 4. Obesity; counseling done on need for weight reduction 5. History of sleep apnea DVT prophylaxis; SCDs/subcu heparin CODE STATUS; full code
[2023-07-03 18:30] LABS: Glucose,Whole Blood 250 mg/dL (70-110)
[2023-07-03 20:39] LABS: Glucose,Whole Blood 236 mg/dL (70-110)
[2023-07-03] MEDS: INSULIN ASPART (NovoLOG) 100 UNIT/ML VIAL SQ SCH (20:42)
[2023-07-04 08:20] LABS: Glucose,Whole Blood 262 mg/dL (70-110)
[2023-07-04 09:09] VITALS: RESP 16
--- NOTE | 2023-07-04 10:06 | CA ---
Transthoracic Echo Report Name: Octavio Jain Age: 52 Gender: M : 1970 Exam Date: 07/04/2023 08:31 Exam Location: [facility] Ht (in): 66 Wt (lb): 230 Ordering Physician: Mehrdad Oliveros MD Attending/Referring Phys: Research Engineer Celia Cardoso RDCS Procedure CPT: Indications: Chest Pain Cardiac Hx: Technical Quality: Fair Contrast 1: Total Dose (mL): Contrast 2: Total Dose (mL): MEASUREMENTS (Male / Female) Normal Values 2D ECHO LV Diastolic Diameter PLAX 3.9 cm 4.2 - 5.9 / 3.9 - 5.3 cm LV Systolic Diameter PLAX 2.6 cm IVS Diastolic Thickness 1.5 cm 0.6 - 1.0 / 0.6 - 0.9 cm LVPW Diastolic Thickness 1.3 cm 0.6 - 1.0 / 0.6 - 0.9 cm LV Relative Wall Thickness 0.7 RV Internal Dim ED PLAX 3.1 cm LVOT Diameter 2.2 cm LA Volume 25.2 cm??? 18 - 58 / 22 - 52 cm??? LA Volume Index 11.2 cm???/m??? 16 - 28 cm???/m??? M-MODE Aortic Root Diameter MM 3.5 cm LA Systolic Diameter MM 3.8 cm LA Ao Ratio MM 1.1 AV Cusp Separation MM 1.5 cm DOPPLER AV Peak Velocity 292.6 cm/s AV Peak Gradient 34.3 mmHg AV Mean Velocity 231.6 cm/s AV Mean Gradient 22.7 mmHg AV Velocity Time Integral 62.7 cm LVOT Peak Velocity 68.0 cm/s LVOT Peak Gradient 1.9 mmHg LVOT Velocity Time Integral 14.2 cm LVOT Stroke Volume 52.2 cm??? LVOT Stroke Volume Index 24.6 ml/m??? LVOT Cardiac Index 1532.6 cm???/min???m??? AV Area Cont Eq vti 0.8 cm??? AV Area Cont Eq pk 0.9 cm??? MV Area PHT 6.4 cm??? Mitral E Point Velocity 75.0 cm/s Mitral A Point Velocity 79.9 cm/s Mitral E to A Ratio 0.9 MV Deceleration Time 118.4 ms MV E' Velocity 7.5 cm/s Mitral E to MV E' Ratio 9.9 FINDINGS Left Ventricle Moderately increased left ventricular wall thickness. Left ventricular cavity size normal. Normal left ventricular systolic function with no obvious regional wall motion abnormalities. Left ventricular ejection fraction is estimated at 55 %. Right Ventricle Normal right ventricular size and function. Right ventricular systolic pressure within normal limits. Right Atrium Normal right atrial size. Left Atrium Normal left atrial size. Mitral Valve Structurally normal mitral valve. Mitral valve thickened. Mild mitral annular calcification. Trace to mild mitral regurgitation. Aortic Valve Mild aortic stenosis with a peak gradient of 34 mmHg and a mean gradient of 23 mmHg. No aortic regurgitation. Tricuspid Valve Structurally normal tricuspid valve. Mild tricuspid regurgitation. Pulmonic Valve Trace pulmonic regurgitation. Pericardium No pericardial effusion. Aorta Normal size aortic root and proximal ascending aorta. CONCLUSIONS Normal LV systolic function Moderate aortic stenosis Previewed by: Dr. Joshua Martinez MD (Electronically Signed) Final Date: 04 July 2023 10:06
--- NOTE | 2023-07-04 11:24 | P.PN ---
Subjective Progress Note Date: 07/04/23 The patient is a very pleasant 52-year-old gentleman with a past medical history significant for diabetes and aortic stenosis based on echo was performed in 2018 as well as overweight and sleep apnea. The patient presented to the hospital complaining of chest discomfort. Discomfort is on the left side of the chest as a dull kind of discomfort with no radiation to the arms or neck or shoulders or back and no associated symptoms and appears to be exertional and nonexertional. Did not get worse in terms of frequency or intensity compared to before. Further investigation performed including an EKG given to be unremarkable and troponin came in to be unremarkable as well. The chest x-ray did not show any acute abnormalities. The rest of the blood work came in to be unremarkable. The patient underwent an echo in 2018 and that revealed normal LV systolic function with moderate aortic sclerosis and mild aortic stenosis. He underwent a stress test also in 2018 came in to be unremarkable. On physical examination today he does have definitely significant crescendo-decrescendo murmur at the ri ght upper sternal border with decrease in the intensity of S2 concerning for progression in the severity of aortic stenosis and possibly bicuspid aortic valve giving his age. Before we pursue any further cardiac testing including a stress test and going to obtain an echo to assess the severity of aortic stenosis. Otherwise the rest of the examination overall is unremarkable. 07/03 Echocardiogram reveals EF of 55%, moderate aortic stenosis. Patient denies having any chest pain. Blood pressure 115/76, heart rate in the 80s. Pulse ox 98% on room air. Physical Examination Gen: This is a 52-year-old male in no acute distress HEENT: Head is atraumatic, normocephalic. Pupils equal, round. Sclerae is anicteric. NECK: Supple. No JVD. No lymphadenopathy. No thyromegaly. LUNGS: Clear to auscultation. No wheezes or rhonchi. No intercostal retractions. HEART: Regular rate and rhythm. No murmur. ABDOMEN: Soft. Bowel sounds are present. No masses. No tenderness. EXTREMITIES: No pedal edema. No calf tenderness. NEUROLOGICAL: Patient is awake, alert and oriented x3. Assessment Intermittent episodes of chest discomfort Diabetes Aortic stenosis, moderate Overweight Sleep apnea Plan Acute coronary syndrome was ruled out Patient is cleared for cardiac discharge and recommend follow-up in the office for aortic stenosis Nurse practitioner note has been reviewed, I agree with documented findings and plan of care. Patient was seen and examined. Objective - Vital Signs Vital signs: Vital Signs Temp 98.1 F 07/04/23 07:00 Pulse 85 07/04/23 08:00 Resp 16 07/04/23 08:00 BP 115/76 07/04/23 07:00 Pulse Ox 98 07/04/23 07:00 FiO2 Intake & Output 07/03/23 07/04/23 07/04/23 18:59 06:59 18:59 Weight 104.326 kg Other: Voiding Method Toilet - Labs CBC & Chem 7: 07/03/23 00:11 07/03/23 00:11 Labs: Abnormal Lab Results - Last 24 Hours (Table) 07/03/23 07/03/23 07/04/23 Range/Units 18:29 20:38 08:19 POC Glucose (mg/dL) 250 H 236 H 262 H (70-110) mg/dL
[2023-07-04 11:34] LABS: BUN/Creat Ratio 16.67 Ratio (12.00-20.00); Calcium 9.6 mg/dL (8.7-10.3); Chloride 103 mmol/L (96-109); Glucose 200 mg/dL (70-110); Potassium 4.6 mmol/L (3.5-5.5); Sodium 138 mmol/L (135-145)
[2023-07-04 11:36] LABS: Basophils # (A) 0.05 X 10*3/uL (0.00-0.10); Basophils % (A) 1.1 %; Eosinophils # (A) 0.16 X 10*3/uL (0.04-0.35); Eosinophils % (A) 3.4 %; HCT 48.2 % (39.6-50.0); HGB 16.1 g/dL (13.0-17.0); Lymphocytes # (A) 1.39 X 10*3/uL (0.90-5.00); Lymphocytes % (A) 29.6 %; MCH 28.4 pg (27.0-32.0); MCHC 33.4 g/dL (32.0-37.0); Mean Platelet Volume 12.3 FL (9.5-12.2); Monocytes # (A) 0.41 X 10*3/uL (0.20-1.00); Monocytes % (A) 8.7 %; NRBC Per 100 WBC 0 X 10*3/uL (0.00-0.01); Neutrophils # (A) 2.65 X 10*3/uL (1.80-7.70); Neutrophils % (A) 56.6 %; Platelet Count 153 X 10*3/uL (140-440); RBC 5.67 X 10*6/uL (4.40-5.60); RDW 12.9 % (11.5-14.5); WBC 4.69 X 10*3/uL (4.50-10.00)
[2023-07-04 13:27] LABS: Glucose,Whole Blood 180 mg/dL (70-110)
[2023-07-04 14:52] VITALS: BP 109/64; PULSE 98; TEMP 97.9
[2023-07-04 17:26] LABS: Glucose,Whole Blood 213 mg/dL (70-110)
--- NOTE | 2023-07-04 18:28 | CA ---
Stress Echo Report Octavio Jain Age: 52 Gender: M : 1970 Exam Date: 07/04/2023 12:19 Exam Location: [facility] Ht (in): 66 Wt (lb): 230 Ordering Physician: Joshua Martinez MD ([id number]) Referring Physician: Juan ROSADO Flight Engineer: Rita Lee RDCS Technologist Procedure CPT: Indication: CP ICD-9 Codes: Rhythm: Patient History: CHEST PRESSURE, PALPITATIONS, DIABETES, PRIOR SMOKER Cardiac Medications: Medications in past 24 hours: Contrast: Definity Stress Results Protocol: Hiram Total dose(mL): 3 Exercise Duration (min:sec): 7:[address] Depression (mm): Angina Score: Mera Score: METS: 9.1 Resting HR: 82 Resting BP: 95 / 65 Peak HR: 153 Peak BP: 160 / 86 Max Predicted HR: 166 92 % Max Predicted HR Target HR: 141 Double Product: [id number] Stress Summary: BP Response: Reason for Termination: MAX EXERTION/TARGET HR Cardiac Symptoms: NO SYMPTOMS ECG Analysis Resting ECG: Normal sinus rhythm normal axis normal intervals Stress ECG: Patient exercised on Hiram protocol for 7 minutes achieving 85% of predicted maximal heart rate without chest pain at peak exercise there was half a millimeter upsloping ST segment depression noted Arrhythmia: Echo Analysis Resting Echo: Normal left ventricular size wall motion systolic function Peak Echo Analysis: Contrast was used to enhance endocardial definition no exercise induced wall motion abnormalities noted MEASUREMENTS (Male/Female) Normal Values CONCLUSIONS Are both average exercise tolerance Nondiagnostic EKG changes with exercise Negative stress echo Dr. Joshua Martinez MD (Electronically Signed) Final Date: 04 July 2023 18:28
--- NOTE | 2023-07-05 06:26 | P.DS ---
Providers Date of admission: 07/03/23 01:15 Expected date of discharge: 07/04/23 Attending physician: Mouna Khan Consults: 07/03/23 01:14 Consult Physician Routine Consulting Provider: [facility] Consult Reason/Comments: chest pain Do you want consulting provider notified?: Yes Primary care physician: Milan Patel [facility] Course: Final diagnosis 1. Chest pain, ruled out acute coronary syndrome, negative stress test 2. Hyperglycemia without acidosis/history of diabetes mellitus type 2 3. History of aortic stenosis; patient had echocardiogram completed in 2018 which revealed normal LV systolic function and moderate aortic sclerosis and mild aortic stenosis 4. Obesity with a BMI of 37.1 5. History of sleep apnea 6. DVT prophylaxis; SCDs/subcu heparin 7. GI prophylaxis 8. Full code Discharge disposition Patient is being discharged in a stable condition with guarded prognosis to home. Patient will follow-up with Dr. Patel in the outpatient setting upon discharge. Patient is to continue with outpatient follow-up with cardiology as scheduled. Total time taken is greater than 35 minutes. Hospital course This is a 52-year-old male who was recently admitted with chest pain that had been progressively getting worse. Patient evaluated by cardiology recommending telemetry monitoring underwent 2D stress echo which was negative for reducible ischemia recommending outpatient follow-up. Patient reports to feeling well and pain has resolved extremely anxious to go home. Patient has been cleared by cardiology. Please refer to cardiology note for further HPI. Currently no reports of chest pain, shortness of breath, or palpitations. Patient is afebrile. No reports of nausea or vomiting and patient is tolerating diet. Patient will be discharged home today. Guarded prognosis. Physical exam: Gen: This is a 52-year-old male who is awake, alert and oriented x 3, well- developed, well-nourished, obese HEENT: Head is atraumatic, normocephalic. Pupils equal, round. Sclerae is anicteric. NECK: Supple. No JVD. No lymphadenopathy. No thyromegaly. LUNGS: Clear to auscultation. No wheezes or rhonchi. No intercostal r etractions. HEART: S1, S2 are muffled ABDOMEN: Soft. Bowel sounds are present. No masses. No tenderness. EXTREMITIES: No pedal edema. No calf tenderness. NEUROLOGICAL: Patient is awake, alert and oriented x3. Cranial nerves 2 through 12 are grossly intact. Please refer to medication reconciliation sheet for a list of medications. The impression and plan of care has been dictated by Selma Eller, Nurse Practitioner as directed. Dr. Lenard MD I have performed a history and examination and MDM of this patient, discussed the same with the dictator, and agree with the dictator's assessment and plan as written ,documented as a scribe. Based on total visit time, I have performed more than 50% of the visit. Patient Condition at Discharge: Stable Plan - Discharge Summary Discharge Rx Participant: No New Discharge Prescriptions: New Nitroglycerin Sl Tabs [Nitrostat] 0.4 mg SUBLINGUAL Q5M PRN #30 tab PRN Reason: Chest Pain Continue Aspirin EC [Ecotrin] 325 mg PO DAILY metFORMIN HCL 1,000 mg PO DIRECTED PRN PRN Reason: HIGH BLOOD SUGAR Discharge Medication List Aspirin EC [Ecotrin] 325 mg PO DAILY 07/03/23 [History] metFORMIN HCL 1,000 mg PO DIRECTED PRN 07/03/23 [History] Nitroglycerin Sl Tabs [Nitrostat] 0.4 mg SUBLINGUAL Q5M PRN #30 tab 07/04/23 [Rx] Follow up Appointment(s)/Referral(s): Tc Marques MD [STAFF PHYSICIAN] - 1 Week (please make follow up appointment for next week. ) Milan Patel DO [Primary Care Provider] - 1-2 days Activity/Diet/Wound Care/Special Instructions: Activity limited until follow-up Follow-up with primary care provider on discharge Follow-up with cardiology in 1 week Continue taking medications as prescribed Discharge Disposition: HOME SELF-CARE
== END 2023-07-04 18:42 | disposition home or self-care (01) ==
LOC: EC 23:12 → 1SOBS 07-03 01:15 → 6NMEDSUR 07-03 03:45
PROVIDERS: ADMIT Internal Medicine; ATTEND Internal Medicine
DX: R07.89 Other chest pain (principal); M54.2 Cervicalgia; E11.65 Type 2 diabetes mellitus with hyperglycemia; I35.0 Nonrheumatic aortic (valve) stenosis; E66.9 Obesity, unspecified; G47.30 Sleep apnea, unspecified; Z68.37 Body mass index [BMI] 37.0-37.9, adult; Z87.81 Personal history of (healed) traumatic fracture; Z99.89 Dependence on other enabling machines and devices; Z79.82 Long term (current) use of aspirin; Z79.84 Long term (current) use of oral hypoglycemic drugs
CPT/HCPCS: 96372 ×2; 99285; 36415; 93005; 93306; 93351; 80053; 80048; 83690; 83735; 84484; 85025 ×2; 85610; 85730; 71046; G0378 ×2; J1644 ×2; Q9957